=== PATIENT | male | born 1955 | race Caucasian/White ===

== ENCOUNTER 2019-03-08 05:46 | Emergency (ER) | payer OTHER ==
[~2019-03-08] VITALS: Ht 180.3 cm; Wt 90.7 kg
[~2019-03-08 05:46] MED LIST: ASPI-1169 PO; ATOR40TA PO; ESCITALOPRAM 20 MG TABLET; METO25TA6 PO
--- NOTE | 2019-03-08 06:00 | NUR ---
BIB FROM HOME BY . AAOX4. BREATHING EVEN AND UNLABORED. AMBULATRY W/ MOD ASSIST. C/O LOWER ABDOMINAL PAIN SINCE 4 HOURS AGO. PT REPORT SHARP PAIN 07/11. PT REPORTS TAKING 2 PERCOCET FOR THE PAIN. PT ALOS STATES THAT HE HAD AN OUTPATIENT SURGERY YESTERDAY. PT REPORT BEING NAUSEOUS BUT NOT AT THIS TIME. NO DIARRHEA. PT HAVE THE URGE TO HAVE BM BUT UNABLE TO VOID. PT TO ER BED 9. AWAITING MD FOR EVMYKEL.
--- NOTE | 2019-03-08 06:04 | NUR ---
PT AMBULATED TO BATHROOM ON HIS OWN.
[2019-03-08] MEDS ORDERED: MORPHINE SULFATE INJ 4 MG/ML DISP.SYRIN ONE (06:19)
[2019-03-08] MEDS ORDERED: ONDANSETRON HCL/PF 4 MG/2 ML VIAL ONE (06:19)
--- NOTE | 2019-03-08 06:20 | NUR ---
IV LINE STARTED ON LFA 20G. BLOOD DRAWN AND GIVEN TO TELEVISION CABINET FINISHER AT BEDSIDE.
--- NOTE | 2019-03-08 06:25 | NUR ---
EMT AT BEDSIDE FOR EKG
[2019-03-08 06:26] LABS: BASOPHILS # (AUTO) 0.1 /CMM (0.0-0.2); BASOPHILS % (AUTO) 0.7 % (0.0-2.0); EOSINOPHILS % (AUTO) 1.2 % (0.0-6.0); HEMATOCRIT 45 % (39-51); HEMOGLOBIN 14.8 g/dL (13.5-17.5); LYMPHOCYTES # (AUTO) 2.4 /CMM (0.8-4.8); LYMPHOCYTES % (AUTO) 17.9 % (20.0-44.0); MEAN CORPUSCULAR HGB CONC 33 g/dl (31.0-36.0); MEAN CORPUSCULAR VOLUME 96 fL (80-96); MONOCYTES # (AUTO) 0.7 /CMM (0.1-1.30); MONOCYTES % (AUTO) 5.4 % (2.0-12.0); NEUTROPHILS % (AUTO) 74.8 % (43.0-81.0); PLATELET COUNT (AUTO) 201 /CMM (150-450); RED BLOOD CELL COUNT(AUTO) 4.67 MIL/uL (4.5-6.0); WHITE BLOOD COUNT (AUTO) 13.4 K/uL (4.3-11.0)
[2019-03-08] MEDS ORDERED: MORPHINE SULFATE INJ 2 MG/ML DISP.SYRIN IV ONE (06:30)
[2019-03-08] MEDS ORDERED: ONDANSETRON HCL/PF 4 MG/2 ML VIAL IVP ONE (06:30)
[2019-03-08] MEDS ORDERED: IV NS 0.9% 1,000 ML BAG IV ONE ×2 (06:30→08:00)
[2019-03-08 06:35] LABS: CARBON DIOXIDE 22 mmol/L (21-32); CHLORIDE 106 mmol/L (98-107); CREATININE 1.5 mg/dL (0.6-1.3); GLUCOSE 193 mg/dL (74-106); POTASSIUM 4.1 mmol/L (3.5-5.1); SODIUM SERUM 142 mmol/L (136-145); UREA NITROGEN, BLOOD 32 mg/dL (7-18)
[2019-03-08 06:41] LABS: ALANINE AMINOTRANSFERASE 37 U/L (12-78); ALBUMIN 3.7 g/dL (3.4-5.0); ALKALINE PHOSPHATASE 92 U/L (46-116); ASPARTATE AMINOTRANSFERASE 17 U/L (15-37); BILIRUBIN,DIRECT 0.1 mg/dL (0.0-0.2); BILIRUBIN,TOTAL 0.4 mg/dL (0.2-1.0); LIPASE 39 U/L (73-393)
--- NOTE | 2019-03-08 07:10 | NUR ---
PT BACK FROM CT
--- NOTE | 2019-03-08 07:13 | NUR ---
REPORT GIVEN TO MAKAYLA RAY FOR [facility]EL[facility]. PT IN BED AAOX4. NAD, BREATHING EVEN AND UNLABORED
--- NOTE | 2019-03-08 07:18 | NUR ---
PT BACK FROM CAT SCAN BLADDER SCAN PER MD REVEALS ZERO RESIDUAL URINE SAMPLE STILL PENDING PT ALERT WITH ORIENTATION X 4 VITAL SIGNS STABLE.WILL CONTINUE TO MONITOR
[2019-03-08] MEDS ORDERED: TAMSULOSIN 0.4 MG CAP.SR.24H ONE (07:58)
[2019-03-08] MEDS ORDERED: TAMSULOSIN 0.4 MG CAP.SR.24H PO ONE (08:00)
--- NOTE | 2019-03-08 08:35 | NUR ---
URINE SENT TO LAB
[2019-03-08 08:39] LABS: APPEARANCE,URINE Clear (CLEAR); BILIRUBIN,URINE Negative (NEGATIVE); BLOOD, URINE Moderate Ery/uL (NEGATIVE); COLOR,URINE Yellow (YELLOW); KETONES,URINE Negative (NEGATIVE); LEUKOCYTE ESTERASE ,URINE Negative (NEGATIVE); NITRITE, URINE Negative (NEGATIVE); PROTEIN,URINE Negative (NEGATIVE); UGLUCOSE Negative (NEGATIVE); UROBILINOGEN,URINE 0.2 EU/dL (0.2)
[2019-03-08 08:48] LABS: BACTERIA,URINE None seen /HPF (None Seen); SQUAMOUS EPITHELIAL CELL,UR Few /HPF (None Seen); WBC,URINE 0-3 /HPF (0-3)
--- NOTE | 2019-03-08 08:55 | NUR ---
PT VERBALIZED UNDERSTANDING OF DISCHARGE AND AFTERCARE INSTRUCTIONS. ALL QUESTIONS ANSWERED. AAOX4. BREATHS EVEN AND UNLABORED. VS WNL. IV DCD. ARM BAND REMOVED. PT IS AMBULATORY WITH STEADY GAIT.
[2019-03-08 08:58] VITALS: BP 143/91
== END 2019-03-08 08:59 | disposition home or self-care (01) ==
LOC: ER 05:50
DX: N23 Unspecified renal colic (principal); I25.10 Atherosclerotic heart disease of native coronary artery without angina pectoris; I25.2 Old myocardial infarction; I10 Essential (primary) hypertension; E78.5 Hyperlipidemia, unspecified; M19.90 Unspecified osteoarthritis, unspecified site; Z98.890 Other specified postprocedural states; Z95.818 Presence of other cardiac implants and grafts; Z88.6 Allergy status to analgesic agent; Z79.899 Other long term (current) drug therapy; Z79.82 Long term (current) use of aspirin
CPT/HCPCS: 36415; 74177; 80048; 80076; 81001; 83690; 84484; 85025; 85730; 93005; 96374; 96375; 99284; J2270; J2405; J7030 ×2; 81000-TC